=== PATIENT | male | born 2005 | race Two or more races ===

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

== ENCOUNTER 2023-01-14 18:55 | Emergency (ER) | payer OTHER ==
[~2023-01-14] VITALS: Ht 162.6 cm; Wt 61.2 kg
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
--- NOTE | 2023-01-14 20:09 | NUR ---
DR. BREAUX AT BEDSIDE
[2023-01-14] MEDS ORDERED: ACETAMINOPHEN 325 MG TABLET ONE (20:24)
--- NOTE | 2023-01-14 20:27 | NUR ---
X-RAY AT BEDSIDE
[2023-01-14] MEDS ORDERED: ACETAMINOPHEN 325 MG TABLET PO ONE (20:30)
--- NOTE | 2023-01-14 20:30 | NUR ---
PT TAKEN TO CT
--- NOTE | 2023-01-14 20:47 | NUR ---
PT RETURNED FROM CT
[2023-01-14] MEDS ORDERED: NAPR-1143 PO (22:50)
[2023-01-14 23:10] VITALS: BP 123/80
== END 2023-01-14 23:13 | disposition home or self-care (01) ==
LOC: EDUNIT# 18:55 → ER 19:05
DX: S16.1XXA Strain of muscle, fascia and tendon at neck level, initial encounter (principal); S30.1XXA Contusion of abdominal wall, initial encounter; S20.312A Abrasion of left front wall of thorax, initial encounter; Z79.899 Other long term (current) drug therapy; V89.2XXA Person injured in unspecified motor-vehicle accident, traffic, initial encounter; Y93.89 Activity, other specified; Y92.89 Other specified places as the place of occurrence of the external cause; Y99.8 Other external cause status
CPT/HCPCS: 70450-TC; 71045-TC; 72125-TC; 72170-TC